=== PATIENT | female | born 1950 | race Caucasian/White ===

== ENCOUNTER 2018-10-24 09:43 | Day surgery (SDC) | payer MEDICARE, OTHER ==
[~2018-10-24 09:43] MED LIST: ACETAMINOPHEN 1,000 MG/100 ML BTL IV ONE; CEFAZOLIN 2 Gram 2 GM/50 ML BAG IVPB ONE
[2018-10-24] MEDS ORDERED: MORPHINE SULFATE 4 MG/ML VIAL IVP ONE (09:44)
[2018-10-24] MEDS ORDERED: LIDOCAINE 2% MDV (20MG/ML) 20ML VIAL IV ONE (09:44)
[2018-10-24] MEDS ORDERED: METHYLPREDNISOLONE 40MG/VIAL IM ONE (09:44)
[2018-10-24] MEDS ORDERED: DEXAMETHASONE 4 MG/ML 1ML VIAL IVP ONE (09:44)
[2018-10-24] MEDS ORDERED: PROPOFOL 10 MG/ML VIAL IV ONE (09:44)
[2018-10-24] MEDS ORDERED: BUPIVACAINE 0.5% W/EPI MPF 30 ML VIAL IVP ONE (09:44)
[2018-10-24] MEDS ORDERED: SEVOFLURANE 250 ML INH ONE (09:44)
[2018-10-24] MEDS ORDERED: FENTANYL PF 100MCG/2ML VIAL IV ONE (09:44)
[2018-10-24] MEDS ORDERED: ONDANSETRON HCL IV 4 MG/2 ML VIAL IVP ONE (09:44)
[2018-10-24] MEDS ORDERED: MIDAZOLAM HCL 2MG/2ML VIAL IV ONE (09:44)
[2018-10-24 09:54] LABS: BASO % 0.6 % (0-6); EOS % 3.2 % (0-6); GRAN % 56.6 % (47-80); HEMATOCRIT 43.6 % (35.0-47.0); HEMOGLOBIN 14.3 gm/dl (11.6-16.0); LYMPH % 29.9 % (16-45); MEAN CORPUSCULAR HEMOGLOBIN 30.8 pg (27-33); MEAN CORPUSCULAR HGB CONC 32.8 g/dl (32-36); MEAN PLATELET VOLUME 8.5 fl (7.4-10.4); MONO % 9.7 % (0-9); PLATELET COUNT 347 K/uL (130-400); RED BLOOD COUNT 4.64 M/uL (3.80-5.40); RED CELL DISTRIBUTION WIDTH 13.1 % (11.5-14.5); WHITE BLOOD COUNT W/O DIFF 8.2 K/uL (4.2-12.2)
[2018-10-24 10:10] LABS: BLOOD UREA NITROGEN 14 mg/dL (8-23); CREATININE 0.7 mg/dL (0.5-0.9); EST GLOMERULAR FILTRATION RATE > 60 mL/min; GLUCOSE,RANDOM 133 mg/dL (74-109)
[2018-10-24] MEDS ORDERED: MORPHINE SULFATE 4 MG/ML VIAL ONE (12:22)
--- NOTE | 2018-10-24 15:00 | Operative Note ---
DATE OF SURGERY: 10/24/2018 PREOPERATIVE DIAGNOSIS: Internal derangement of the left knee. POSTOPERATIVE DIAGNOSES: 1. Moderate synovitis. 2. Grade 3 chondromalacia of the medial femoral condyle. 3. Complex degenerative tear involving the anterior and posterior horn of the medial meniscus. OPERATION: 1. Left knee arthroscopy with partial medial and lateral meniscectomies. 2. Left knee arthroscopy with debridement of medial femoral condyle. 3. Left knee arthroscopy with partial synovectomy. Staff Surgeon: David Rod MD Anesthesia: General. Preparation: Chloraprep. Individual Considerations: None. PROCEDURE: The patient was taken to the operating room and placed supine on the operating room table. The patient had a successful induction with general anesthetic. The left lower extremity was prepped and draped in the usual fashion. The patient had a superolateral inflow cannula placed. Skin was infiltrated with 0.5% Marcaine with epinephrine prior. A blood-tinged effusion was drained. The knee was inflated with normal saline. An inferomedial and an inferolateral portal were made in a similar fashion. The arthroscope was introduced through the inferolateral portal up into the pouch. Patellofemoral joint was normal but she had synovitis primarily. MTDMaria A
--- NOTE | 2018-11-20 17:01 | Operative Note ---
DATE OF SURGERY: 10/24/2018 PREOPERATIVE DIAGNOSIS: Internal derangement of left knee. POSTOPERATIVE DIAGNOSES: 1. Moderate synovitis. 2. Grade 3 chondromalacia of the medial femoral condyle. 3. Complex degenerative tear involving the posterior horn of the medial meniscus. 4. Complex degenerative tear involving the anterior horn of the lateral meniscus. OPERATION: 1. Left knee arthroscopy with partial medial and lateral meniscectomies. 2. Left knee arthroscopy with debridement of the medial femoral condyle. 3. Left knee arthroscopy with partial synovectomy. Staff Surgeon: David Rod MD Anesthesia: General. Preparation: Chloraprep. Individual Considerations: None. PROCEDURE: The patient was taken to the operating room and placed supine on the operating room table. The patient had a successful induction with general anesthetic. The left lower extremity was prepped and draped in the usual fashion. The patient had a superolateral inflow cannula placed. Skin was infiltrated with 0.5% Marcaine with epinephrine. A blood-tinged effusion was drained. The knee was then inflated with normal saline. An inferomedial and an inferolateral portal were made in a similar fashion. The arthroscope was introduced through the inferolateral portal up into the pouch. The patellofemoral joint was normal but she had synovitis primarily in the superior pouch. This was debrided with a shaver. The arthroscope was then placed in the medial compartment. There were grade 3 changes on the medial femoral condyle. These were smoothed with a shaver. Primarily centered at 45 degrees. There was a degenerative tear involving the posterior horn of the medial meniscus, and this was smoothed off with a shaver. Tibial plateau looked good. In the notch, the cruciates were normal. Laterally, she had a complex degenerative tear involving the anterior horn of the lateral meniscus, and this was debrided with a shaver. The knee was then irrigated out with saline to remove loose floating debris. Portals were closed with angela, and 20 mL of 0.5% Marcaine with epinephrine along with 40 mg of Depo-Medrol were injected into the knee. A sterile bulky compressive dressing was applied. The patient tolerated procedure well. Needle and sponge counts were correct. Estimated blood loss was minimal. She was taken back to recovery in good condition. There were no complications. FABIOLA
== END 2018-10-24 13:30 | disposition home or self-care (01) ==
LOC: SUR 09:43
PROVIDERS: ATTEND Orthopaedic Surgery
DX: S83.272A Complex tear of lateral meniscus, current injury, left knee, initial encounter (principal); S83.232A Complex tear of medial meniscus, current injury, left knee, initial encounter; M94.262 Chondromalacia, left knee; I10 Essential (primary) hypertension; K21.9 Gastro-esophageal reflux disease without esophagitis
CPT/HCPCS: 29880; 29875; 01400; 85025; 80048; J2405; J3010; J0690; J2270; J1030